=== PATIENT | female | born 1935 | race Hispanic/Latino ===

== ENCOUNTER → 2020-06-17 | Outpatient (CLI) | payer OTHER | END | disposition home or self-care (01) | LOC: SHCH 10:00 | PROVIDERS: ATTEND Internal Medicine Cardiovascular Disease | DX: I47.1 Supraventricular tachycardia (principal); I45.10 Unspecified right bundle-branch block; I51.7 Cardiomegaly | CPT/HCPCS: 93306; 93356 ==